=== PATIENT | female | born 2000 | race Caucasian/White ===

== ENCOUNTER 2020-11-06 11:36 | Emergency (ER) | payer OTHER ==
[~2020-11-06] VITALS: Ht 175.3 cm; Wt 104.3 kg
[2020-11-06 12:00] VITALS: BP_SYST 155
[2020-11-06] MEDS ORDERED: NACL 0.9% 1,000 ML IV ONE ×2 (13:00→16:00)
[2020-11-06] MEDS ORDERED: ONDANSETRON HCL 4 MG/2 ML VIAL IVP ONE (13:00)
[2020-11-06 13:16] LABS: BASOPHILS % (AUTO) 0.3 % (0.0-2.0); EOSINOPHILS % (AUTO) 0.1 % (0.0-4.0); HEMATOCRIT 44.1 % (36-48); HEMOGLOBIN 14.8 g/dL (12.0-16.0); LYMPHOCYTES # (AUTO) 1.5 K/uL (1.0-5.5); LYMPHOCYTES % (AUTO) 17.1 % (20.5-51.5); MEAN CORPUSCULAR HEMOGLOBIN 30 pg (27-31); MEAN CORPUSCULAR HGB CONC 34 % (32-36); MEAN CORPUSCULAR VOLUME 90 fL (79.0-98.0); MONOCYTES # (AUTO) 0.5 K/uL (0.0-1.0); MONOCYTES % (AUTO) 5.4 % (1.7-9.3); NEUTROPHILS # (AUTO) 6.9 K/uL (1.8-7.7); NEUTROPHILS % (AUTO) 77.1 % (40.0-70.0); PLATELET COUNT (AUTO) 149 K/uL (130-430); RED BLOOD CELL COUNT(AUTO) 4.93 MIL/uL (4.2-6.2); RED CELL DISTRIBUTION WIDTH 13.2 % (9.0-15.0)
[2020-11-06 13:17] LABS: BILIRUBIN,URINE NEGATIVE (NEGATIVE); BLOOD, URINE NEGATIVE (NEGATIVE); COLOR,URINE YELLOW (YELLOW); GLUCOSE,URINE NEGATIVE (NEGATIVE); KETONES,URINE 3+ (NEGATIVE); LEUKOCYTE ESTERASE ,URINE 1+ (NEGATIVE); NITRITE, URINE NEGATIVE (NEGATIVE); PROTEIN URINE 1+ (NEGATIVE)
[2020-11-06 13:22] LABS: CLARITY/URINE HAZY (CLEAR)
[2020-11-06 13:33] LABS: BACTERIA,URINE MODERATE /HPF (None Seen); MUCUS,URINE 1+ /LPF (None Seen)
[2020-11-06 13:41] LABS: CALCIUM 8.8 mg/dL (8.4-11.0); CREATININE 0.73 mg/dL (0.55-1.30); POTASSIUM 3.9 mmol/L (3.5-5.1)
[2020-11-06] MEDS ORDERED: D5/0.45 NS 1,000 ML IV ONE (13:45)
[2020-11-06 13:46] LABS: ALBUMIN 4.2 g/dL (3.4-4.8); TOTAL BILIRUBIN 0.5 mg/dL (0.0-1.0)
[2020-11-06] MEDS ORDERED: PROCHLORPERAZINE EDISYLATE 10 MG/2 ML VIAL IVP ONE (16:00)
[2020-11-06] MEDS ORDERED: cefTRIAXone 1 GM IVPB PREMIX 50 ML IV ONE (16:00)
[2020-11-06] MEDS ORDERED: PROCHLORPERAZINE EDISYLATE 10 MG/2 ML VIAL ONE (16:06)
[2020-11-06] MEDS ORDERED: ONDA4TAB5 PO (17:32)
[2020-11-06 17:40] VITALS: BP_SYST 122
== END 2020-11-06 17:40 | disposition home or self-care (01) ==
LOC: SED 11:36
DX: O23.41 Unspecified infection of urinary tract in pregnancy, first trimester (principal); O21.0 Mild hyperemesis gravidarum; Z3A.08 8 weeks gestation of pregnancy
CPT/HCPCS: 36415; 80053; 81000; 83605; 85025; 87040; 87086; 96361; 96365; 96375; 99284; J0696; J0780; J2405; J7030

== ENCOUNTER 2020-11-16 15:12 | Observation (INO) | payer OTHER, SELFPAY ==
[~2020-11-16] VITALS: Ht 175.3 cm; Wt 104.8 kg
[~2020-11-16 15:12] MED LIST: ONDA4TAB5 PO
--- NOTE | 2020-11-16 15:45 | NUR ---
DIRECT ADMISSION: RECEIVE 20 YRS OLD FEMALE WITH 10 WEEKS OLD . SHE IS AWAKE, ALERT x4, HAVING NAUSEA AND VOMITING. SHE AMBULATES WELL TO THE BATHROOM INDEPENDENTLY. CALL LIGHT WITHIN REACH.
[2020-11-16 16:18] VITALS: BP_SYST 132
--- NOTE | 2020-11-16 16:43 | NUR ---
PICC LINE NURSE IS HERE FOR MIDLINE INSERTION. GET THE PATIENT SIGN THE CONSENT.
--- NOTE | 2020-11-16 16:57 | NUR ---
Request for home health sent to [facility]-they will need insurance authorization to process home health-they will be able to process 11/17
[2020-11-16] MEDS ORDERED: LR 500 ML IV PRN (17:15)
[2020-11-16] MEDS: LR 1,000 ML IV SCH ×2 (17:58→20:25)
[2020-11-16] MEDS ORDERED: COMMUNICATION ORDER XX PRN (18:00)
[2020-11-16] MEDS: ONDANSETRON HCL 4 MG/2 ML VIAL IVP PRN ×2 (18:26→22:47)
--- NOTE | 2020-11-16 18:38 | NUR ---
CLOSING NOTE: PATIENT HAS AARON MIDLINE, WITH RINGER LACTATE IVF BOLUS 500 ML/HR THEN WILL CONTINUE INFUSING 250 ML/HR. SHE IS STILL FEELING NAUSEA. ZOFRAN 4 MG IVP GIVEN.
--- NOTE | 2020-11-16 19:25 | NUR ---
Opening note Received patient awake, AOx4, resting in bed. No distress and nonlabored breathing on room air. IVF Infusing via IV on left upper arm. Bed is locked in lowest position. Patient reports call light is not working. Provided my phone number and updated board.
[2020-11-16] MEDS ORDERED: TEMAZEPAM 7.5 MG CAPSULE PO PRN (19:45)
[2020-11-16 20:00] VITALS: BP_SYST 124
--- NOTE | 2020-11-16 20:25 | NUR ---
IVF Hung new bag of LR (1000 ml) and infusing as ordered at 250 ml/hr, no infiltration, tolerating.
--- NOTE | 2020-11-16 22:47 | NUR ---
nausea Patient c/o nausea requested Zofran and it was given.
[2020-11-17 00:20] VITALS: BP_SYST 135
--- NOTE | 2020-11-17 00:40 | NUR ---
IV ADMINISTRATION END TIME (Observation Patients ONLY): IV infusion of LR started at 2024 (11/16/20) and ended at 00. Addendum: 11/17/20 at 0500 by Lin Alvarez RN ended at 0042
[2020-11-17] MEDS: LR 1,000 ML IV SCH ×5 (00:42→14:51)
[2020-11-17] MEDS: ONDANSETRON HCL 4 MG/2 ML VIAL IVP PRN ×4 (03:45→16:56)
--- NOTE | 2020-11-17 03:54 | NUR ---
nausea Patient c/o nausea requested Zofran and it was given. Patient reports discomfort/pain on upper arm below insertion of midline; no swelling noted, no leaking noted, skin near dressing tape is mildly red. provided ice pack, will continue to monitor.
--- NOTE | 2020-11-17 04:40 | NUR ---
IV ADMINISTRATION END TIME (Observation Patients ONLY): IV infusion of LR started at 2 and ended at 0.
--- NOTE | 2020-11-17 04:42 | NUR ---
new IVF hung new IVF of LR and infusing at 250 ml/hr
[2020-11-17 06:20] LABS: ALBUMIN 3.3 g/dL (3.4-4.8); CALCIUM 8.1 mg/dL (8.4-11.0); CREATININE 0.64 mg/dL (0.55-1.30); POTASSIUM 3.3 mmol/L (3.5-5.1); TOTAL BILIRUBIN 0.8 mg/dL (0.0-1.0)
[2020-11-17 06:32] LABS: BASOPHILS % (AUTO) 0.2 % (0.0-2.0); EOSINOPHILS # (AUTO) 0.1 K/uL (0.0-0.4); EOSINOPHILS % (AUTO) 0.7 % (0.0-4.0); HEMATOCRIT 37.1 % (36-48); HEMOGLOBIN 12.7 g/dL (12.0-16.0); LYMPHOCYTES # (AUTO) 2.5 K/uL (1.0-5.5); MEAN CORPUSCULAR HEMOGLOBIN 31 pg (27-31); MEAN CORPUSCULAR HGB CONC 34 % (32-36); MEAN CORPUSCULAR VOLUME 90 fL (79.0-98.0); MONOCYTES # (AUTO) 0.7 K/uL (0.0-1.0); MONOCYTES % (AUTO) 7.6 % (1.7-9.3); NEUTROPHILS # (AUTO) 5.7 K/uL (1.8-7.7); NEUTROPHILS % (AUTO) 63.5 % (40.0-70.0); PLATELET COUNT (AUTO) 125 K/uL (130-430); RED BLOOD CELL COUNT(AUTO) 4.15 MIL/uL (4.2-6.2); RED CELL DISTRIBUTION WIDTH 13.1 % (9.0-15.0); WHITE BLOOD COUNT (AUTO) 8.9 K/uL (4.8-10.8)
[2020-11-17 08:00] VITALS: BP_SYST 130
--- NOTE | 2020-11-17 08:05 | NUR ---
OPENING NOTES: PATIENT RESTING IN BED IN SEMI-ESCALONA'S POSITION. AWAKE, ALERT, ORIENTED X4. FALL AND SAFETY PRECAUTION REINFORCED. CALL LIGHT WITHIN REACH.
--- NOTE | 2020-11-17 11:40 | NUR ---
Note PICC RN Rich Gong came to pt's bedside and assessed pt's AARON midline. Adjustments done and pt comfortable with midline at this time - dressing was redone on AARON midline.
[2020-11-17 11:49] VITALS: BP_SYST 130
[2020-11-17 13:57] VITALS: BP_SYST 132
--- NOTE | 2020-11-17 14:05 | NUR ---
Note Pt sitting up in bed and slowly eating her lunch. No nausea/emesis noted at this time. AARON midline saline locked at this time, 2L/NS done this shift. Call light within reach.
--- NOTE | 2020-11-17 15:46 | NUR ---
Dietitian Recommendations * Recommend continuing regular diet * [facility] provided nutrition education [facility] Please refer to Nutrition Assessment for details. Addendum: 11/17/20 at [address] Amended: Links added.
[2020-11-17 16:00] VITALS: BP_SYST 107
--- NOTE | 2020-11-17 16:21 | NUR ---
Patient to wi home with [facility] [phone] and [facility] for IVF and [phone]
--- NOTE | 2020-11-17 18:24 | NUR ---
D/C Patient Patient given discharge packet and verbalized understanding of discharged instructions. Ambulatory with steady gait for discharge to home. Patient in stable condition, ID band removed. All belongings sent with patient.
--- NOTE | 2020-11-21 14:21 | NUR ---
Discharge Follow Up Call: [employer] phoned pt @ [phone] and spoke to patient who stated she is "feeling a little better". Pt stated home health has started services on 11/18 and will see her again at the end of the week. Pt stated she has an appointment with PCP on 11/22 and will request for her medication then. Pt did not have questions/concerns about the instructions. No further SS call needed at this time.
--- NOTE | 2020-11-25 10:01 | NUR ---
IV ADMINISTRATION END TIME (Observation Patients ONLY): Late Entry: IV infusion of LR 500ml one time dose started at ended at . IVF of LR at 250ml started 11/17 at 0900 discontinued at 14:51
== END 2020-11-17 18:25 | disposition home health service (06) ==
LOC: INTOOBSV 15:12 → SMU 15:12
PROVIDERS: ADMIT Specialist; ATTEND Specialist
DX: O21.1 Hyperemesis gravidarum with metabolic disturbance (principal); Z20.822 Contact with and (suspected) exposure to COVID-19; O99.281 Endocrine, nutritional and metabolic diseases complicating pregnancy, first trimester; E86.0 Dehydration; O26.891 Other specified pregnancy related conditions, first trimester; R63.4 Abnormal weight loss; Z3A.12 12 weeks gestation of pregnancy
CPT/HCPCS: 36415; 80053; 85025; 87426; 96361 ×2; 96374; 96376 ×2; C1751; G0378 ×2; J2405 ×2; J7120 ×2

== ENCOUNTER → 2020-12-02 | Emergency (ER) | payer OTHER ==
[~2020-12-02] VITALS: Ht 175.3 cm; Wt 100.7 kg
[~2020-12-02] MED LIST changes: +NACL 0.9% 1,000 ML IV ONE; -ONDA4TAB5 PO; +ONDANSETRON HCL 4 MG/2 ML VIAL IVP ONE
[2020-12-02 10:22] VITALS: BP_SYST 132
[2020-12-02 11:50] LABS: BASOPHILS % (AUTO) 0.1 % (0.0-2.0); EOSINOPHILS % (AUTO) 0.5 % (0.0-4.0); HEMATOCRIT 45.1 % (36-48); HEMOGLOBIN 15.4 g/dL (12.0-16.0); LYMPHOCYTES # (AUTO) 1.2 K/uL (1.0-5.5); LYMPHOCYTES % (AUTO) 15.3 % (20.5-51.5); MEAN CORPUSCULAR HEMOGLOBIN 31 pg (27-31); MEAN CORPUSCULAR HGB CONC 34 % (32-36); MEAN CORPUSCULAR VOLUME 90 fL (79.0-98.0); MONOCYTES # (AUTO) 0.5 K/uL (0.0-1.0); MONOCYTES % (AUTO) 6.1 % (1.7-9.3); NEUTROPHILS # (AUTO) 6.2 K/uL (1.8-7.7); PLATELET COUNT (AUTO) 132 K/uL (130-430); RED BLOOD CELL COUNT(AUTO) 5.03 MIL/uL (4.2-6.2); WHITE BLOOD COUNT (AUTO) 7.9 K/uL (4.8-10.8)
[2020-12-02 11:55] LABS: CALCIUM 9.2 mg/dL (8.4-11.0); CREATININE 0.64 mg/dL (0.55-1.30)
[2020-12-02 12:03] LABS: PROTHROMBIN TIME 10.2 SECS (9.5-12.5)
[2020-12-02 12:07] LABS: TOTAL BILIRUBIN 0.6 mg/dL (0.0-1.0)
== END | disposition home or self-care (01) ==
LOC: SED 10:22
DX: O21.0 Mild hyperemesis gravidarum (principal); Z3A.11 11 weeks gestation of pregnancy
CPT/HCPCS: 36415; 80053; 85025; 85610; 85730; 96374; 99283; J2405; J7030

== ENCOUNTER 2020-12-07 16:52 | Observation (INO) | payer OTHER ==
[2020-12-07] MEDS ORDERED: D5LR 1,000 ML IV PRN (20:00)
[2020-12-08] MEDS: ONDANSETRON HCL 4 MG/2 ML VIAL IVP PRN (07:50)
== END 2020-12-08 10:20 | disposition home or self-care (01) ==
LOC: SPU 16:52
PROVIDERS: ADMIT Specialist; ATTEND Specialist
DX: O26.891 Other specified pregnancy related conditions, first trimester (principal); R11.0 Nausea; Z45.2 Encounter for adjustment and management of vascular access device; Z3A.12 12 weeks gestation of pregnancy
CPT/HCPCS: 71045; 96374; C1769; G0378; J2405

== ENCOUNTER 2020-12-24 15:10 | Inpatient (IN) | payer OTHER ==
[~2020-12-24] VITALS: Ht 172.7 cm; Wt 97.1 kg
[2020-12-24] MEDS ORDERED: D5/0.45 NS 500 ML IV STA (15:32)
[2020-12-24] MEDS ORDERED: D5/0.45 NS 1,000 ML IV ONE (15:45)
[2020-12-24] MEDS ORDERED: METOCLOPRAMIDE HCL 10 MG/2 ML VIAL IVP ONE ×2 (16:15→22:30)
[2020-12-24] MEDS ORDERED: chlorproMAZINE HCL 50 MG/ 2 ML AMP IM ONE (16:15)
[2020-12-24] MEDS ORDERED: DIPHENHYDRAMINE INJ 50 MG/ML VIAL IVP ONE (16:15)
[2020-12-24 16:19] LABS: BASOPHILS % (AUTO) 0.2 % (0.0-2.0); EOSINOPHILS % (AUTO) 0.3 % (0.0-4.0); HEMATOCRIT 37.5 % (36-48); HEMOGLOBIN 12.9 g/dL (12.0-16.0); LYMPHOCYTES % (AUTO) 12.2 % (20.5-51.5); MEAN CORPUSCULAR HEMOGLOBIN 31 pg (27-31); MEAN CORPUSCULAR HGB CONC 34 % (32-36); MEAN CORPUSCULAR VOLUME 89 fL (79.0-98.0); MONOCYTES # (AUTO) 0.5 K/uL (0.0-1.0); MONOCYTES % (AUTO) 6.3 % (1.7-9.3); NEUTROPHILS # (AUTO) 6.6 K/uL (1.8-7.7); PLATELET COUNT (AUTO) 117 K/uL (130-430); RED BLOOD CELL COUNT(AUTO) 4.23 MIL/uL (4.2-6.2); RED CELL DISTRIBUTION WIDTH 12.7 % (9.0-15.0); WHITE BLOOD COUNT (AUTO) 8.2 K/uL (4.8-10.8)
[2020-12-24] MEDS ORDERED: DIPHENHYDRAMINE INJ 50 MG/ML VIAL ONE (16:22)
[2020-12-24 16:35] LABS: ALANINE AMINOTRANSFERASE 54 U/L (12-78); ALBUMIN 3.2 g/dL (3.4-4.8); ANION GAP 11 (5-15); ASPARTATE AMINOTRANSFERASE 31 U/L (10-37); CALCIUM 8.2 mg/dL (8.4-11.0); CHLORIDE 103 mmol/L (98-107); CREATININE 0.64 mg/dL (0.55-1.30); FREE T4 (FREE THYROXINE) 1.9 ng/dl (0.8-1.5); GFR AFRICAN AMERICAN 149 mL/min (>90); GLUCOSE 128 mg/dL (70-99); POTASSIUM 3.7 mmol/L (3.5-5.1); SODIUM SERUM 139 mmol/L (136-145); THYROID STIMULATING HORMONE < 0.01 uIu/mL (0.36-3.74); TOTAL BILIRUBIN 0.5 mg/dL (0.0-1.0); UREA NITROGEN, BLOOD 9 mg/dL (8-21)
[2020-12-24 20:24] LABS: BILIRUBIN,URINE 1+ (NEGATIVE); BLOOD, URINE NEGATIVE (NEGATIVE); CLARITY/URINE SL CLOUDY (CLEAR); GLUCOSE,URINE 1+ (NEGATIVE); KETONES,URINE 3+ (NEGATIVE); LEUKOCYTE ESTERASE ,URINE TRACE (NEGATIVE); NITRITE, URINE NEGATIVE (NEGATIVE); PROTEIN URINE NEGATIVE (NEGATIVE)
[2020-12-24 20:32] VITALS: BP_SYST 106
[2020-12-24 20:36] LABS: UROBILINOGEN,URINE >=8 (0.2-1.0)
[2020-12-24 20:37] LABS: COLOR,URINE AMBER (YELLOW)
[2020-12-24 20:38] LABS: BACTERIA,URINE FEW /HPF (None Seen); MUCUS,URINE None Seen /LPF (None Seen); RBC,URINE 0-3 /HPF (0-3); URINE AMORPHOUS PHOSPHATES 3+ /HPF (None Seen)
[2020-12-24] MEDS ORDERED: DIPHENHYDRAMINE INJ 50 MG/ML VIAL IM ONE (22:30)
[2020-12-25] MEDS: D5/0.45 NS 1,000 ML IV SCH ×3 (03:56→19:36)
[2020-12-25] MEDS ORDERED: METOCLOPRAMIDE HCL 10 MG/2 ML VIAL IVP ONE (06:30)
[2020-12-25] MEDS ORDERED: DIPHENHYDRAMINE INJ 50 MG/ML VIAL IM ONE (06:30)
[2020-12-25] MEDS: ONDANSETRON HCL 4 MG/2 ML VIAL IVP PRN ×3 (11:14→19:44)
[2020-12-25] MEDS: MAG-AL HYDROX/SIMETH 30 ML UDC PO PRN ×3 (11:14→19:43)
[2020-12-25] MEDS ORDERED: PANTOPRAZOLE SODIUM 40 MG/VIAL (PROTONIX) IVP ONE (17:00)
[2020-12-25] MEDS ORDERED: PANTOPRAZOLE SODIUM 40 MG/VIAL (PROTONIX) IVP SCH (17:00)
[2020-12-25] MEDS ORDERED: TEMAZEPAM 15 MG CAPSULE PO PRN (20:45)
[2020-12-26] MEDS: ONDANSETRON HCL 4 MG/2 ML VIAL IVP PRN ×2 (00:54→06:54)
[2020-12-26] MEDS: D5/0.45 NS 1,000 ML IV SCH (03:38)
[2020-12-26] MEDS: MAG-AL HYDROX/SIMETH 30 ML UDC PO PRN (07:53)
[2020-12-26] MEDS ORDERED: PANTOPRAZOLE SODIUM 40 MG/VIAL (PROTONIX) IVP SCH (09:00)
== END 2020-12-26 11:30 | disposition home or self-care (01) | DRG 831 ==
LOC: SPU 15:22 → OBSVTOIN 15:22
PROVIDERS: ADMIT Specialist; ATTEND Specialist
DX: O21.0 Mild hyperemesis gravidarum (principal); K22.6 Gastro-esophageal laceration-hemorrhage syndrome; O99.612 Diseases of the digestive system complicating pregnancy, second trimester; Z3A.15 15 weeks gestation of pregnancy; Z79.899 Other long term (current) drug therapy; Z20.822 Contact with and (suspected) exposure to COVID-19
CPT/HCPCS: 36415; 76700-TC; 80053; 81000; 84439; 84443; 84480; 85025; 87086; C9113; J1200; J2405; J2765; J7042; J7060

== ENCOUNTER 2021-01-05 11:12 | Outpatient (CLI) | payer OTHER ==
[2021-01-05 12:08] LABS: BASOPHILS % (AUTO) 0.4 % (0.0-2.0); EOSINOPHILS # (AUTO) 0.1 K/uL (0.0-0.4); EOSINOPHILS % (AUTO) 0.9 % (0.0-4.0); HEMATOCRIT 38.2 % (36-48); HEMOGLOBIN 13.4 g/dL (12.0-16.0); LYMPHOCYTES # (AUTO) 1.5 K/uL (1.0-5.5); LYMPHOCYTES % (AUTO) 18.7 % (20.5-51.5); MEAN CORPUSCULAR HEMOGLOBIN 31 pg (27-31); MEAN CORPUSCULAR HGB CONC 35 % (32-36); MEAN CORPUSCULAR VOLUME 89 fL (79.0-98.0); MONOCYTES # (AUTO) 0.5 K/uL (0.0-1.0); MONOCYTES % (AUTO) 6.4 % (1.7-9.3); NEUTROPHILS # (AUTO) 5.8 K/uL (1.8-7.7); NEUTROPHILS % (AUTO) 73.6 % (40.0-70.0); PLATELET COUNT (AUTO) 127 K/uL (130-430); RED CELL DISTRIBUTION WIDTH 13.4 % (9.0-15.0); WHITE BLOOD COUNT (AUTO) 7.9 K/uL (4.8-10.8)
== END 2021-01-05 19:07 | disposition short-term general hospital (02) ==
LOC: SLB 11:12
PROVIDERS: ATTEND Specialist
DX: D69.6 Thrombocytopenia, unspecified (principal)
CPT/HCPCS: 36415; 85025

== ENCOUNTER 2021-03-06 12:29 | Outpatient (CLI) | payer OTHER ==
[2021-03-06 13:10] LABS: BASOPHILS # (AUTO) 0.1 K/uL (0.0-0.2); BASOPHILS % (AUTO) 0.5 % (0.0-2.0); EOSINOPHILS # (AUTO) 0.1 K/uL (0.0-0.4); EOSINOPHILS % (AUTO) 0.6 % (0.0-4.0); HEMATOCRIT 36.9 % (36-48); HEMOGLOBIN 12.8 g/dL (12.0-16.0); LYMPHOCYTES # (AUTO) 1.3 K/uL (1.0-5.5); LYMPHOCYTES % (AUTO) 13.1 % (20.5-51.5); MEAN CORPUSCULAR HEMOGLOBIN 31 pg (27-31); MEAN CORPUSCULAR HGB CONC 35 % (32-36); MEAN CORPUSCULAR VOLUME 90 fL (79.0-98.0); MONOCYTES # (AUTO) 0.4 K/uL (0.0-1.0); MONOCYTES % (AUTO) 4.2 % (1.7-9.3); NEUTROPHILS # (AUTO) 7.8 K/uL (1.8-7.7); NEUTROPHILS % (AUTO) 81.6 % (40.0-70.0); PLATELET COUNT (AUTO) 141 K/uL (130-430); RED BLOOD CELL COUNT(AUTO) 4.08 MIL/uL (4.2-6.2); RED CELL DISTRIBUTION WIDTH 13.6 % (9.0-15.0); WHITE BLOOD COUNT (AUTO) 9.6 K/uL (4.8-10.8)
[2021-03-06 13:28] LABS: ALANINE AMINOTRANSFERASE 10 U/L (12-78); ALBUMIN 3.2 g/dL (3.4-4.8); ANION GAP 10 (5-15); ASPARTATE AMINOTRANSFERASE 5 U/L (10-37); BILIRUBIN,DIRECT < 0.1 mg/dL (0.0-0.3); CALCIUM 8.7 mg/dL (8.4-11.0); CHLORIDE 102 mmol/L (98-107); CREATININE 0.46 mg/dL (0.55-1.30); GLUCOSE 85 mg/dL (70-99); POTASSIUM 3.9 mmol/L (3.5-5.1); SODIUM SERUM 139 mmol/L (136-145); TOTAL BILIRUBIN 0.4 mg/dL (0.0-1.0); UREA NITROGEN, BLOOD 4 mg/dL (8-21)
[2021-03-06 13:31] LABS: GFR AFRICAN AMERICAN 218 mL/min (>90)
[2021-03-07 08:06] LABS: FOLATE (FOLIC ACID) 10.8 ng/mL (>3.0)
[2021-03-07 11:07] LABS: ANTI NUCLEAR AB WITH REFLEX Negative (Negative)
== END 2021-03-06 19:49 | disposition home or self-care (01) ==
LOC: SLB 12:29
PROVIDERS: ATTEND Specialist
DX: L29.9 Pruritus, unspecified (principal); D64.9 Anemia, unspecified
CPT/HCPCS: 36415; 80053; 82248; 82607; 82746; 85025; 86038

== ENCOUNTER 2021-03-06 19:52 | Observation (INO) | payer OTHER | END 2021-03-06 21:35 | disposition home or self-care (01) | LOC: SPU 19:52 | PROVIDERS: ADMIT Specialist; ATTEND Specialist | DX: O26.892 Other specified pregnancy related conditions, second trimester (principal); R10.9 Unspecified abdominal pain; Z3A.25 25 weeks gestation of pregnancy | CPT/HCPCS: 36415; 82239; G0378 ==

== ENCOUNTER 2021-03-28 10:44 | Outpatient (CLI) | payer OTHER ==
[2021-03-28 11:43] LABS: BASOPHILS % (AUTO) 0.2 % (0.0-2.0); EOSINOPHILS # (AUTO) 0.1 K/uL (0.0-0.4); EOSINOPHILS % (AUTO) 0.7 % (0.0-4.0); HEMATOCRIT 37.4 % (36-48); HEMOGLOBIN 12.8 g/dL (12.0-16.0); LYMPHOCYTES # (AUTO) 1.3 K/uL (1.0-5.5); LYMPHOCYTES % (AUTO) 14.6 % (20.5-51.5); MEAN CORPUSCULAR HEMOGLOBIN 31 pg (27-31); MEAN CORPUSCULAR HGB CONC 34 % (32-36); MEAN CORPUSCULAR VOLUME 91 fL (79.0-98.0); MONOCYTES # (AUTO) 0.5 K/uL (0.0-1.0); MONOCYTES % (AUTO) 5.6 % (1.7-9.3); NEUTROPHILS # (AUTO) 7.1 K/uL (1.8-7.7); NEUTROPHILS % (AUTO) 78.9 % (40.0-70.0); PLATELET COUNT (AUTO) 148 K/uL (130-430); RED BLOOD CELL COUNT(AUTO) 4.13 MIL/uL (4.2-6.2); RED CELL DISTRIBUTION WIDTH 13.7 % (9.0-15.0); WHITE BLOOD COUNT (AUTO) 8.9 K/uL (4.8-10.8)
[2021-03-28 11:54] LABS: GLUCOSE FASTING 85 mg/dL (70-99)
== END 2021-03-28 19:46 | disposition home or self-care (01) ==
LOC: SLB 10:44
PROVIDERS: ATTEND Specialist
DX: Z33.1 Pregnant state, incidental (principal)
CPT/HCPCS: 36415; 82947; 85025; 86592

== ENCOUNTER 2021-06-10 19:10 | Inpatient (IN) | payer OTHER ==
[~2021-06-10] VITALS: Ht 30.5 cm; Wt 0.5 kg
[2021-06-10] MEDS ORDERED: TERBUTALINE SULFATE 1 MG/ML VIAL SUBCUT ONE (21:45)
[2021-06-10] MEDS ORDERED: OXYTOCIN/0.9 % SODIUM CHLORIDE 1,000 ML IV SCH (21:45)
[2021-06-10] MEDS ORDERED: DINOPROSTONE 10 MG SUPP VG ONE (21:45)
[2021-06-10] MEDS ORDERED: LR 1,000 ML IV SCH (21:45)
[2021-06-10 22:50] LABS: BASOPHILS % (AUTO) 0.1 % (0.0-2.0); EOSINOPHILS % (AUTO) 0.4 % (0.0-4.0); HEMATOCRIT 32.4 % (36-48); HEMOGLOBIN 11.3 g/dL (12.0-16.0); LYMPHOCYTES # (AUTO) 1.9 K/uL (1.0-5.5); LYMPHOCYTES % (AUTO) 23.4 % (20.5-51.5); MEAN CORPUSCULAR HEMOGLOBIN 30 pg (27-31); MEAN CORPUSCULAR HGB CONC 35 % (32-36); MEAN CORPUSCULAR VOLUME 85 fL (79.0-98.0); MONOCYTES # (AUTO) 0.5 K/uL (0.0-1.0); MONOCYTES % (AUTO) 5.9 % (1.7-9.3); NEUTROPHILS # (AUTO) 5.6 K/uL (1.8-7.7); NEUTROPHILS % (AUTO) 70.2 % (40.0-70.0); PLATELET COUNT (AUTO) 138 K/uL (130-430); RED BLOOD CELL COUNT(AUTO) 3.83 MIL/uL (4.2-6.2); RED CELL DISTRIBUTION WIDTH 14.3 % (9.0-15.0)
[2021-06-10 23:58] VITALS: BP_SYST 130
[2021-06-11] MEDS ORDERED: ONDANSETRON 4 MG ODT TAB PO PRN (07:45)
[2021-06-11] MEDS: NALBUPHINE HCL 10 MG/ML AMP IVP PRN ×2 (09:07→12:51)
[2021-06-11] MEDS ORDERED: ONDANSETRON HCL 4 MG/2 ML VIAL IVP PRN (09:15)
[2021-06-11] MEDS ORDERED: ONDANSETRON HCL 4 MG/2 ML VIAL ONE (09:32)
[2021-06-11] MEDS ORDERED: DIPHENHYDRAMINE INJ 50 MG/ML VIAL IVP ONE (11:45)
[2021-06-11] MEDS ORDERED: CEFAZOLIN 2 GM IVPB PREMIX 50 ML IV ONE (13:49)
[2021-06-11] MEDS ORDERED: fentaNYL CITRATE/PF 100 MCG/2 ML AMP ONE (15:02)
[2021-06-11] MEDS ORDERED: ROPIVACAINE HCL/PF 0.2% 200 ML ONE (15:02)
[2021-06-11] MEDS ORDERED: LR 500 ML IV ONE (16:45)
[2021-06-11] MEDS ORDERED: FENT2mCg/mL-ROPIVA0.2%/NS EPID 200 ML EP SCH (16:45)
[2021-06-11] MEDS ORDERED: HYDROCORTISONE 0.5% CREAM 28.4 GM CREAM.GM. TP PRN (18:00)
[2021-06-11] MEDS ORDERED: AMPICILLIN SODIUM 2 GM VIAL ONE (19:54)
[2021-06-11] MEDS ORDERED: AMPICILLIN SODIUM 2 GM in NS 100 ML IV ONE (20:00)
[2021-06-12] MEDS ORDERED: AMPICILLIN SODIUM 1 GM in NS 50 ML IV SCH ×2
[2021-06-12] MEDS ORDERED: AMPICILLIN SODIUM 1 GM VIAL ONE (00:11)
[2021-06-12] MEDS ORDERED: LANOLIN 7 GM OINT. TP PRN (01:15)
[2021-06-12] MEDS ORDERED: DIPH-TET-PERTUS Vaccine 0.5 ML VIAL (ADACEL) I.M. PRN (01:15)
[2021-06-12] MEDS ORDERED: NALOXONE HCL 0.4 MG/ML AMP (NARCAN) IVP PRN (01:15)
[2021-06-12] MEDS ORDERED: DERMOPLAST SPRAY TP PRN (01:15)
[2021-06-12] MEDS ORDERED: MEASLES,MUMPS&RUBELLA VACC/PF 12500 UNIT/0.5 ML VIAL SUBQ PRN (01:15)
[2021-06-12] MEDS ORDERED: WITCH HAZEL LEAF 1 MED.PAD MED.PAD TP PRN (01:15)
[2021-06-12] MEDS ORDERED: OXYTOCIN/0.9 % SODIUM CHLORIDE 1,000 ML IV ONE (01:15)
[2021-06-12] MEDS ORDERED: METHYLERGONOVINE MALEATE 0.2 MG TABLET PO PRN (01:15)
[2021-06-12] MEDS ORDERED: RHO(D) IMMUNE GLOBULIN/MALTOSE 1500 UNITS/1.3 ML (WINHRO) IM PRN (01:15)
[2021-06-12] MEDS ORDERED: HYDROcodone/ACETAMIN 5-325 MG TAB (NORCO/ VICODIN) PO PRN (01:15)
[2021-06-12] MEDS ORDERED: OXYTOCIN/0.9 % SODIUM CHLORIDE 1,000 ML IV SCH (01:15)
[2021-06-12] MEDS ORDERED: HYDROCORTISONE 0.5% CREAM 28.4 GM CREAM.GM. TP PRN (01:15)
[2021-06-12] MEDS ORDERED: ANUSOL 1 EA SUPP.RECT (PREPARATION H) RC PRN (01:15)
[2021-06-12] MEDS ORDERED: OXYCODONE/ACETAMINOPHEN 5-325 TABLET PO PRN (01:15)
[2021-06-12] MEDS: IBUPROFEN 600 MG TABLET PO SCH ×3 (05:52→17:44)
[2021-06-12] MEDS: DOCUSATE SODIUM 100 MG CAPSULE PO SCH (09:22)
[2021-06-12] MEDS: OXYCODONE/ACETAMINOPHEN 5-325 TABLET PO PRN (15:40)
[2021-06-12] MEDS ORDERED: SENNOSIDES/DOCUSATE SODIUM 1 TAB TABLET(SENOKOT-S) PO SCH (21:00)
[2021-06-12] MEDS ORDERED: TEMAZEPAM 15 MG CAPSULE PO PRN (21:00)
[2021-06-13] MEDS: IBUPROFEN 600 MG TABLET PO SCH ×2 (00:24→06:08)
[2021-06-13 07:28] LABS: BASOPHILS % (AUTO) 0.2 % (0.0-2.0); EOSINOPHILS # (AUTO) 0.1 K/uL (0.0-0.4); HEMATOCRIT 28.5 % (36-48); HEMOGLOBIN 9.7 g/dL (12.0-16.0); LYMPHOCYTES # (AUTO) 2.6 K/uL (1.0-5.5); LYMPHOCYTES % (AUTO) 30.5 % (20.5-51.5); MEAN CORPUSCULAR HEMOGLOBIN 29 pg (27-31); MEAN CORPUSCULAR HGB CONC 34 % (32-36); MEAN CORPUSCULAR VOLUME 86 fL (79.0-98.0); MONOCYTES # (AUTO) 0.6 K/uL (0.0-1.0); NEUTROPHILS # (AUTO) 5.2 K/uL (1.8-7.7); NEUTROPHILS % (AUTO) 61.3 % (40.0-70.0); PLATELET COUNT (AUTO) 108 K/uL (130-430); RED BLOOD CELL COUNT(AUTO) 3.32 MIL/uL (4.2-6.2); RED CELL DISTRIBUTION WIDTH 14.3 % (9.0-15.0); WHITE BLOOD COUNT (AUTO) 8.4 K/uL (4.8-10.8)
[2021-06-13] MEDS: OXYCODONE/ACETAMINOPHEN 5-325 TABLET PO PRN (07:46)
[2021-06-13] MEDS ORDERED: MINERAL OIL 30 ML UDC PO ONE (08:54)
[2021-06-13] MEDS ORDERED: HYDROCORTISONE 0.5% CREAM 28.4 GM CREAM.GM. TP ONE (08:55)
[2021-06-13] MEDS: DOCUSATE SODIUM 100 MG CAPSULE PO SCH (09:27)
[2021-06-14 19:06] LABS: FTA-Ab (T PALLIDUM) Non Reactive (Non Reactive)
== END 2021-06-13 11:30 | disposition home or self-care (01) | DRG 807 ==
LOC: SPU 19:10 → INTOOBSV 19:10 → OBSVTOIN 20:10
PROVIDERS: ADMIT Specialist; ATTEND Specialist
PROC: 10E0XZZ Delivery of Products of Conception, External Approach (ICD-10-PCS; principal; 2021-06-12)
PROC: 0KQM0ZZ Repair Perineum Muscle, Open Approach (ICD-10-PCS; 2021-06-12)
PROC: 3E0P7VZ Introduction of Hormone into Female Reproductive, Via Natural or Artificial Opening (ICD-10-PCS; 2021-06-12)
PROC: 3E0R3BZ Introduction of Anesthetic Agent into Spinal Canal, Percutaneous Approach (ICD-10-PCS; 2021-06-12)
PROC: 00HU33Z Insertion of Infusion Device into Spinal Canal, Percutaneous Approach (ICD-10-PCS; 2021-06-12)
DX: O69.1XX0 Labor and delivery complicated by cord around neck, with compression, not applicable or unspecified (principal); Z37.0 Single live birth; Z3A.39 39 weeks gestation of pregnancy; Z20.822 Contact with and (suspected) exposure to COVID-19; O70.1 Second degree perineal laceration during delivery
CPT/HCPCS: 36415; 81002; 85025; 86592; 86780; 86886; 86900; 86901; G0378; J0290; J0690; J2300; J2405; J2590; J3010; Q0162